=== PATIENT | female | born 1945 | race Two or more races ===

== ENCOUNTER 2025-02-23 11:10 | Emergency (ER) | payer OTHER ==
[~2025-02-23] VITALS: Ht 182.9 cm; Wt 136.0 kg
[2025-02-23 11:14] VITALS: O2SAT 99
[2025-02-23 12:09] LABS: BASOPHILS % 0.8 % (0.0-2.0); EOSINOPHILS % 0.5 % (0.0-5.0); HEMATOCRIT. 40.8 % (36.0-48.0); HEMOGLOBIN. 13.3 g/dL (12.0-16.0); LYMPHOCYTES % 21.8 % (20.0-50.0); MEAN PLATELET VOLUME 8.3 fl (7.4-10.4); MONOCYTES % 6.6 % (2.0-8.0); NEUTROPHILS % 70.3 % (40.0-76.0); PLATELET 299 x1000/uL (130-400); RED BLOOD CELL COUNT 4.60 mill/uL (4.2-5.4); RED CELL DISTRIBUTION WIDTH 14.6 % (11.6-14.6)
[2025-02-23 12:26] LABS: CREATININE 1.0 mg/dL (0.6-1.0); TROPONIN I HIGH SENSITIVITY 9 ng/L (3.0-34)
[2025-02-23 12:27] LABS: PROTEIN TOTAL 7.4 g/dL (6.0-8.3); UREA NITROGEN BLOOD 10 mg/dL (9-23)
[2025-02-23 12:28] LABS: ASPARTATE AMINOTRANSFERASE 12 IU/L (<34)
[2025-02-23 12:29] LABS: BILIRUBIN DIRECT < 0.1 mg/dL (<=3.0); BILIRUBIN TOTAL 0.3 mg/dL (0.1-1.0)
[2025-02-23 14:41] VITALS: BP 114/85; PULSE 92; RESP 19; TEMP 37.1; O2SAT 95
[2025-02-23] MEDS: SODIUM CHLORIDE 0.9% 1,000 ML IV ONE (14:46)
== END 2025-02-23 14:52 | disposition short-term general hospital (02) ==
LOC: ER 11:10 → CANBEDREQ 13:27 → ER 14:52
DX: R42 Dizziness and giddiness (principal); I10 Essential (primary) hypertension; R06.02 Shortness of breath; Z88.5 Allergy status to narcotic agent; Z79.899 Other long term (current) drug therapy
CPT/HCPCS: 99285; 96360; 70450; 71045; 80076; 80048; 83880; 85025; 86850; 86900; 86901; 84484; 36415; 93005; J7030